=== PATIENT | female | born 1950 | race Native Hawaiian/Other Pacific Islander ===

== ENCOUNTER 2016-09-02 11:18 | Outpatient (CLI) | payer OTHER | END 2016-09-02 19:49 | disposition home or self-care (01) | LOC: MAMMO 11:18 | DX: Z12.31 Encounter for screening mammogram for malignant neoplasm of breast (principal); M85.88 Other specified disorders of bone density and structure, other site; Z13.820 Encounter for screening for osteoporosis | CPT/HCPCS: G0202-TC ==

== ENCOUNTER 2017-04-24 15:25 | Outpatient (CLI) | payer OTHER ==
[2017-04-24 15:45] LABS: PLATELET COUNT 300 K/uL (152-353)
[2017-04-24 15:52] LABS: POTASSIUM 3.8 mmol/L (3.6-5.2)
== END 2017-04-24 16:25 | disposition home or self-care (01) ==
LOC: LABW 15:25
PROVIDERS: Obstetrics & Gynecology Gynecologic Oncology
DX: N89.0 Mild vaginal dysplasia (principal); N87.0 Mild cervical dysplasia
CPT/HCPCS: 36415; 80048; 85027; 93005

== ENCOUNTER 2017-11-05 10:18 | Outpatient (CLI) | payer OTHER | END 2017-11-05 22:16 | disposition home or self-care (01) | LOC: RAD 10:18 | DX: M25.511 Pain in right shoulder (principal) ==

== ENCOUNTER 2017-12-18 13:50 | Outpatient (CLI) | payer OTHER | END 2017-12-18 22:11 | disposition home or self-care (01) | LOC: MRI 13:50 | DX: M17.10 Unilateral primary osteoarthritis, unspecified knee (principal) ==